=== PATIENT | female | born 1990 | race Caucasian/White ===

== ENCOUNTER 2016-12-06 01:12 | Emergency (ER) | payer OTHER ==
[~2016-12-06] VITALS: Ht 160 cm; Wt 52.2 kg
--- NOTE | ~2016-12-06 | CT71 ---
[facility] A Service of [facility] RADIOLOGY TEXT RESULTS PATIENT: CELY DANGELO LOCATION: [facility] : [birth year] UNIT #: [id number] AGE: [address]: Henrry Peck MD SEX: F ORDER DR: [id number] [facility]. [place], [place] [address] [id number] MR#: [id number] Acc #: [id number] NAME: CELY DANGELO : 1990 SEX: F STUDY DATE/TIME: 12/06/2016 4:21 UNIT: [facility] ROOM: STUDY DESCRIPTION: CT Head Wo Contrast Attending Physician: Henrry Peck M.D. Ordering Physician: Henrry Peck M.D. Primary Care Physician: Primary Care Physician No MEDICAL IMAGING REPORT This report is preliminary unless electronic signature is present EXAM CT brain without contrast HISTORY Drug overdose with heroin today. Confusion. Headache. Dizzy. FINDINGS CT brain without contrast is compared to 03/05/[address] exam was performed with one or more of the following radiation dose reduction techniques: automatic exposure control, adjustment of mA and/or kV according to patient size, and iterative reconstruction. There is mild asymmetric dilatation of the temporal horn of the right lateral ventricle, unchanged, and likely developmental. No intracranial hemorrhage, mass or edema. No midline shift or focal atrophy or extraaxial fluid collection. IMPRESSION 1. No acute intracranial findings. 2. 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 Dictated by... Lauri Serna M.D. THIS IS AN ELECTRONICALLY VERIFIED REPORT Lauri Serna M.D. at 12/06/2016 6:27 AM HANNAH/carlotta TD: 12/06/2016 04:56 [facility] A Service of [facility] RADIOLOGY TEXT RESULTS PATIENT: CELY DANGELO LOCATION: [facility] : [birth year] UNIT #: [id number] AGE: [address]: Henrry Peck MD SEX: F ORDER DR: BRANDY #: [id number] MEDICAL IMAGING REPORT Page 1 of 1 COPY
[~2016-12-06 01:12] MED LIST: FLEXERIL10 MG PO; IMPLANON68 MG/IMPL SQ; NAPROSYN500 MG PO; NO MEDICATIONS; PEN-VEE K PO; TYLENOL #3 PO
[2016-12-06 02:07] LABS: URINE SOURCE CLEAN CATCH
[2016-12-06 02:12] LABS: URINE APPEARANCE CLEAR; URINE BILIRUBIN NEG (NEG); URINE BLOOD NEG (NEG); URINE COLOR YELLOW; URINE GLUCOSE NEG (NEG); URINE KETONE NEG (NEG); URINE LEUKOCYTE ESTERASE NEG (NEG); URINE NITRATE NEG (NEG); URINE PH 7.5 (5-8); URINE PROTEIN NEG (NEG); URINE SPECIFIC GRAVITY 1.006 (1.003-1.035); URINE UROBILINOGEN 0.2 MG/DL (NEG)
[2016-12-06 02:18] LABS: CULTURE INDICATED? NO
[2016-12-06 02:24] LABS: AMPHETAMINE POS (NEG); BARBITURATES NEG (NEG); BENZODIAZEPINES NEG (NEG); COCAINE NEG (NEG); MARIJUANA NEG (NEG); OPIATES POS (NEG); TRICYCLIC ANTIDEPRESSANTS NEG (NEG); U METHADONE NEG (NEG)
== END 2016-12-06 05:20 | disposition home or self-care (01) ==
LOC: CED 01:12
PROVIDERS: Emergency Medicine
DX: F19.10 Other psychoactive substance abuse, uncomplicated (principal); F31.9 Bipolar disorder, unspecified; F17.200 Nicotine dependence, unspecified, uncomplicated; Z79.899 Other long term (current) drug therapy
CPT/HCPCS: 70450; 80307; 81003; 84703; 99284